=== PATIENT | male | born 2000 | race Caucasian/White ===

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

== ENCOUNTER 2019-02-03 16:25 | Emergency (ER) | payer MEDICAID, SELFPAY ==
[2019-02-03 16:26] VITALS: BP 162/82; PULSE 99; RESP 16; TEMP 36.6; O2SAT 99; BMI 28.5
--- NOTE | 2019-02-03 16:49 | ED.VIS.GEN ---
History of Present Illness Chief Complaint: Abd Pain Detail of Chief Complaint: Right-sided Informant: Patient Onset: Weeks Context: Sudden Onset Timing: Intermittent Quality: Sharp pain like when someone touches you after your struck by a baseball Location: Anomaly right upper quadrant and right lower quadrant Current Severity: Gone Maximum Severity: Severe Worsened by: Solids or liquids Relieved by: Not eating Associated Symptoms: 20 pound unintentional weight loss past month Narrative: Patient is a healthy 18-year-old with no medical problems who presents with right-sided intermittent abdominal pain after he attempts to eat or drink anything for the past several weeks to months. He reports a 20 pound weight loss. He denies family history cholelithiasis. He denies hematemesis, melena hematochezia. He denies dysuria, frequency, urgency or hematuria. Denies change in the color his urine. He denies change in color, caliber or consistency of his stool. He denies night sweats. Prior similar symptoms: No Recent Illness/Hospitalization: No Past Medical History - Allergies and Home Meds Allergies/Adverse Reactions: Allergies No Known Allergies Allergy (Verified 02/03/19 16:28) Primary Care Physician: Care Physician,No Primary [Primary Care Provider] - Prior records reviewed: Yes Past Medical History: None Surgical History: no surgical history Lives: Spouse/ Significant Other Smoking Status: Never smoker Alcohol: None Review of Systems General: Reports: Malaise, Weight loss. Denies: Chills, Fever, Subjective, Sweats Eyes: Denies: Visual changes - bilaterally, Blurred Vision - bilaterally, Diplopia ENT: Denies: Bilateral ear pain, Rhinorrhea, Sore throat Cardiovascular: Denies: Chest pain, Palpitations Respiratory: Denies: Dyspnea, Cough, Dyspnea on exertion Gastrointestinal: Reports: Abdominal pain, Nausea, Vomiting. Denies: Diarrhea, Constipation, Melena, Hematochezia Genitourinary: Denies: Dysuria, Hematuria, Frequency Musculoskeletal: Reports: Myalgias, Arthralgias, Neck pain. Denies: Back pain, Extremity Pain Skin: Denies: Rash, Wounds Neurological: Denies: Headache, Weakness, Numbness Psych: Denies: Depression Hematologic: Denies: Easy bruising, Easy bleeding Allergy: Denies: Uticaria Physical Exam Vital Signs/Narrative: Vital Signs Temp Pulse Resp BP Pulse Ox 02/03/19 16:26 98 F 99 16 162/82 H 99 Inital Vital Signs reviewed: Yes General: Well nourished, Well developed, No Acute Distress Head: Normocephalic, Atraumatic Eyes: Perrl, EOMI. Negative for: Pale conjunctiva, Scleral icterus ENT: No rhinorrhea, TM's clear, Dry mucous membranes. Negative for: Nasal congestion, Sinus tenderness Neck: Supple, Nontender, No lymphadenopathy, No JVD Cardiovascular: Regular rate, Regular rhythm, No murmurs, Normal S1, Normal S2 Respiratory: No distress, CTA bilaterally, Chest nontender. Negative for: Decreased Air Movement Abdomen: Soft, Nontender, Nondistended, Normal bowel sounds, No masses. Negative for: Hepatomegaly, Splenomegaly, Mass, Ventral hernia, Umbilical hernia Back: Nontender, Normal Inspection Extremities: Nontender, No edema Skin: Normal color, No rash. Negative for: Cyanosis, Jaundice, Pallor Neurological: Alert, Oriented x3, Cranial nerves II-XII grossly intact, Normal Strength, Normal Sensation Psychological: Normal affect, Normal Mood Diagnostic/Tx/Re-eval Laboratory Results 02/03/19 02/03/19 02/03/19 17:10 17:10 18:00 WBC 11.4 H RBC 5.56 Hgb 16.0 Hct 48.5 MCV 87.2 MCH 28.8 MCHC 33.0 RDW 12.7 RDW Differential 40.7 Plt Count 371 MPV 9.4 Immature Gran % (Auto) 0.900 Neut % (Auto) 59.4 Lymph % (Auto) 30.4 [place] % (Auto) 8.0 Eos % (Auto) 0.9 Baso % (Auto) 0.4 Absolute Neuts (auto) 6.8 Absolute Lymphs (auto) 3.46 Total Counted Not Reportable Sodium 138 Potassium 3.8 Chloride 104 Carbon Dioxide 28.0 Anion Gap 6 BUN 7 Creatinine 0.96 Estim Creat Clear Calc 131.82 Est GFR (MDRD) Af Amer 129 Est GFR (MDRD) Non-Af 107 BUN/Creatinine Ratio 7.3 L Glucose 83 Calcium 9.2 Total Bilirubin 0.70 AST 21 ALT 56 Alkaline Phosphatase 94 Total Protein 7.8 Albumin 4.3 Globulin 3.5 Albumin/Globulin Ratio 1.2 Lipase 148 Urine Color Yellow Urine Clarity Clear Urine pH 8.0 Ur Specific [place] 1.010 Urine Protein Negative Urine Glucose (UA) Normal Urine Ketones Negative Urine Occult Blood Negative Urine Nitrite Negative Urine Bilirubin Negative Urine Urobilinogen Normal Ur Leukocyte Esterase Negative - Medical Decision Making With history of 20 pound weight loss generalized weakness conference of metabolic panel was obtained to assess electrolytes, renal function and hepatic enzymes. CBC was obtained to assess white count, H&H and differential in the event that he has an atypical differential to may suggest leukemia. Since patient had no vomiting here and his blood work is unremarkable will discharge to home to follow-up with primary care physician. If he does not have one will assign one to him. ED Disposition - Plan for ED Patient: Diagnosis: Right-sided abdominal pain of unknown cause, Nausea and vomiting in adult patient Instructions: ED Abdominal Pain Unkn Cause Male, ED Nausea Vomiting Prescriptions: Ondansetron [Zofran Odt] 4 mg PO Q8H PRN PRN #10 tab PRN Reason: Nausea Referrals: Care Physician,No Primary [Primary Care Provider] - Additional Instructions: Your primary care doctor's name is on your insurance card supplied to you by [facility]. Recommend calling your doctor and following up in the next 5-7 days.
[2019-02-03] MEDS: 0.9% Normal Saline 1,000 ML 1000 ML IV (17:17)
[2019-02-03 17:32] LABS: Absolute Lymphocyte Count 3.46 X10^3/ul (0.83-4.51); Absolute Neutrophil Count 6.8 X10^3/uL (2.0-7.7); Basophil# 0.04 X10^3/uL; Basophil% 0.4 % (0-1); Eosinophils% 0.9 % (0-5); Hematocrit 48.5 % (40-54); Lymphocyte # 3.46 X10^3/ul (4.0); Lymphocyte % 30.4 % (19-41); Mean Corpuscular Hgb 28.8 pg (27.0-32.0); Mean Corpuscular Volume 87.2 fL (80-94); Mean Platelet Vol. 9.4 fl (6.2-12.0); Monocyte# 0.91 X10^3/uL; Neutrophil # 6.79 X10^3/uL (2.7-7.7); Neutrophil % 59.4 % (47-70); Platelet Count 371 K/mm3 (150-450); RBC Distribution Width CV 12.7 % (11.6-14.6); RBC Distribution Width SD 40.7 fl (35.1-43.9); Red Blood Count 5.56 M/mm3 (4.6-6.2); White Blood Count 11.4 K/mm3 (4.4-11.0)
[2019-02-03 17:33] LABS: POSITIVE COUNT NO; POSITIVE DIFFERENTIAL NO; POSITIVE MORPHOLOGY NO
[2019-02-03 17:43] LABS: ALB/GLOB Ratio 1.2 RATIO (0.9-2.4); AST(SGOT) 21 U/L (15-37); Alanine Aminotransfer ALT/SGPT 56 U/L (16-61); Albumin, Serum 4.3 g/dL (3.2-5.0); Alkaline Phosphatase 94 U/L (45-117); Anion Gap 6 (5-15); BUN 7 mg/dL (7-18); BUN/Creat Ratio 7.3 RATIO (10-20); Calcium,Total 9.2 mg/dL (8.5-10.1); Chloride 104 mmol/L (98-107); Creatinine, Serum 0.96 mg/dL (0.70-1.30); EST Glomerular Filtration Rate 107 mL/min (>60); Est Glom Filt Rate - Afr Amer 129 mL/min (>60); Estimated Creatinine Clearance 131.82 ml/min; Globulin 3.5 g/dL (2.2-4.2); Glucose 83 mg/dL (74-106); Lipase 148 U/L (73-393); Potassium 3.8 mmol/L (3.5-5.1); Protein, Total 7.8 g/dL (6.4-8.2); Sodium Level 138 mmol/L (136-145)
[2019-02-03 18:32] LABS: Color, Urine Yellow (Yellow); Glucose, Dipstick Normal (Normal); Ketone-Dipstick Negative (Negative); Leukocyte Esterase-Dipstick Negative /ul (Negative); Nitrite-Dipstick Negative (Negative); Occult Blood-Urine Negative /ul (Negative); Protein-Dipstick Negative (Negative); Urine Bilirubin Dipstick Negative (Negative); Urine Clarity Clear (Clear); Urine Urobilinogen Normal (Normal)
[2019-02-03 19:37] VITALS: BP 120/62; PULSE 81; RESP 16; O2SAT 98
== END 2019-02-03 19:37 | disposition home or self-care (01) ==
LOC: ED 17:00
PROVIDERS: Emergency Provider Emergency Medicine
DX: R10.11 Right upper quadrant pain (principal); R10.31 Right lower quadrant pain; R11.2 Nausea with vomiting, unspecified
CPT/HCPCS: 80053; 81002; 83690; 85025; 96360; 99283; J7030; A4216

== ENCOUNTER 2019-03-29 12:54 | Emergency (ER) | payer MEDICAID, SELFPAY ==
[2019-03-29 12:55] VITALS: BP 155/86; PULSE 77; RESP 18; TEMP 36.6; O2SAT 98; BMI 29.4
--- NOTE | 2019-03-29 13:08 | ED.VISSUMM ---
- ER Visit Summary Date of Service: 03/29/19 Chief Complaint: Back pain History of Present Illness: The patient is a 18 M who complains of left lower back pain. Started 20 minutes ago. He was laying down when this happened. He denies any specific injury. He has sharp pain in the left lumbar area that does not radiate. It is worse with movement. Nothing makes it better. He took nothing for it. Denies any bowel or bladder incontinence. No numbness or tingling to his legs. He has had back pain before but states is never been this bad. Physical Examination: Vitals are reviewed. Heart is regular rate and rhythm. Lungs are clear. Abdomen is soft. Back is tender in the left lumbar paraspinal area. He has no midline tenderness. No CVA tenderness. His neurologic exam is normal. Test Results: None performed Emergency Department Course and Treatment: The patient's pain is muscular. Since he has no bony tenderness I do not feel x-rays are necessary. I will give him Norflex and Toradol here. Naproxen and Flexeril for home. Will follow up with his PCP Treatment Plan: [] Disposition: Discharge Impression: Lumbar strain This note was generated with [employer] dictation software. It may contain incorrect words, spelling, and punctuation that were not noted in review of the chart prior to signing ED Disposition - Plan for ED Patient: Referrals: Care Physician,No Primary [Primary Care Provider] -
--- NOTE | 2019-03-29 13:09 | ED.DEP ---
ED Disposition - Plan for ED Patient: Disposition: Home or Assisted Living Instructions: ED Neck Back Pain General Prescriptions: Naproxen [Naprosyn] 500 mg PO BID PRN #20 tab Cyclobenzaprine [Flexeril] 10 mg PO TID PRN #20 tab PRN Reason: Muscle Spasm Referrals: Care Physician,No Primary [Primary Care Provider] -
[2019-03-29] MEDS: Orphenadrine 60 MG/2 ML Ampul IM (13:21)
[2019-03-29] MEDS: Ketorolac 60 MG/2 ML Vial IM (13:21)
== END 2019-03-29 13:41 | disposition home or self-care (01) ==
LOC: ED 13:18
PROVIDERS: Emergency Provider Emergency Medicine
DX: S39.012A Strain of muscle, fascia and tendon of lower back, initial encounter (principal); X58.XXXA Exposure to other specified factors, initial encounter; Y93.89 Activity, other specified; Y92.9 Unspecified place or not applicable; Z72.0 Tobacco use
CPT/HCPCS: 96372; 99281

== ENCOUNTER 2019-04-03 07:27 | Emergency (ER) | payer MEDICAID, SELFPAY ==
[2019-04-03 07:28] VITALS: BP 155/83; PULSE 82; RESP 16; TEMP 36.6; O2SAT 98; BMI 27.8
--- NOTE | 2019-04-03 07:36 | ED.VIS.UPPEX ---
History of Present Illness Chief Complaint: Upper Extremity Injury Informant: Patient Occurred: Today Mechanism/Context: Injury, Work Related Current Severity: Mild Maximum Severity: Moderate Worsened by: Movement and palpation Relieved by: Nothing Associated Symptoms: Negative for: Parasthesia, Weakness, Loss of Funtion Narrative: Patient presents with crush injury and localizes pain to the middle phalanx of his right index finger. He is right-hand dominant. Immunization within 5 to 10 years. He denies paresthesia, anesthesia motor weakness. He has no contraindication to NSAIDs. Prior similar symptoms: No Recent Illness/Hospitalization: No - Past Medical History (1) No significant past medical history Status: Acute Past Medical History - Allergies and Home Meds Allergies/Adverse Reactions: Allergies No Known Allergies Allergy (Verified 04/03/19 07:30) Primary Care Physician: Care Physician,No Primary [Primary Care Provider] - Prior records reviewed: No Past Medical History: None Surgical History: no surgical history Lives: Alone Smoking Status: Current every day smoker Alcohol: None Review of Systems Musculoskeletal: Reports: Extremity Pain - Right index finger. Denies: Myalgias, Arthralgias, Neck pain, Back pain, Swelling Neurological: Denies: Weakness, Parasthesia, Numbness Hematologic: Denies: Easy bruising, Easy bleeding Allergy: Denies: Uticaria, Swelling of the mouth Physical Exam Vital Signs/Narrative: Vital Signs Temp Pulse Resp BP Pulse Ox 04/03/19 07:28 97.9 F 82 16 155/83 H 98 Inital Vital Signs reviewed: Yes Right Wrist: Negative for: Abrasion, Contusion, Deformity, Edema, Hematoma, Limited ROM, - Right Hand: Negative for: Abrasion, Contusion, Deformity, Edema, Hematoma, Limited ROM, - Right Finger: Contusion, - - There is swelling and pain palpation of the middle phalanx. The extensor and decide tendon is intact. The flexor digitorum superficialis and flexor digitorum profundus are intact. There is no subungual hematoma noted. Sensation is normal. Capillary refill is normal.. Negative for: Abrasion, Deformity, Edema, Hematoma, Limited ROM General: Well nourished, Well developed Head: Normocephalic, Atraumatic Eyes: Perrl, EOMI. Negative for: Pale conjunctiva Cardiovascular: Regular rate, Regular rhythm Respiratory: No distress Neurological: Alert, Oriented x3, Cranial nerves II-XII grossly intact, Normal Strength, Normal Sensation Psychological: Normal affect, Normal Mood Diagnostic/Tx/Re-eval Chest X-Ray - ED: Read by ED Physician Three-view x-ray of the right index finger was obtained. On the AP view and oblique there is radiolucency without disruption of the cortex. Since patient is tender over this area and there is soft tissue swelling will treat as if there is a nondisplaced fracture and referred to [facility] for follow-up. - Medical Decision Making Since there is point tenderness and swelling will obtain x-ray to evaluate for fracture. Differential contusion versus fracture. Since there is concern for nondisplaced fracture the middle phalanx was placed in aluminum splint. He was referred to [facility]. ED Disposition - Plan for ED Patient: Disposition: Home or Assisted Living Diagnosis: Fracture of middle phalanx of right index finger Instructions: ED Fx Finger Closed Referrals: Care Physician,No Primary [Primary Care Provider] - [facility] [GROUP OF PHYSICIANS] - 2 Days Additional Instructions: Wear splint 14/06. May remove splint every 2 to 3 days to apply new tape. Follow-up with [facility]. There is an area of concern that may represent a nondisplaced fracture and reason you were placed in a splint.
--- NOTE | 2019-04-03 07:46 | RAD_ITS ---
STUDY: X-RAY - RIGHT HAND, ATTENTION SECOND FINGER REASON FOR EXAM: Male, 18 years old. Injury to the middle phalanx PIP TECHNIQUE: 3 view(s) of the finger were obtained. COMPARISON: None. FINDINGS: There is a subtle hairline fracture at the base of the middle phalanx of the right hand, second digit with subjacent soft tissue swelling. No evidence of involvement of the PIP joint. RAD/Finger(s) Min 2 Views IMPRESSION: As above Electronically Signed: Yusuf Wright DO at 8:29 EDT Tel , Service support ,
== END 2019-04-03 08:25 | disposition home or self-care (01) ==
LOC: ED 08:20
PROVIDERS: Emergency Provider Emergency Medicine
DX: S62.620A Displaced fracture of middle phalanx of right index finger, initial encounter for closed fracture (principal); X58.XXXA Exposure to other specified factors, initial encounter; Y93.9 Activity, unspecified; Y92.9 Unspecified place or not applicable; F17.200 Nicotine dependence, unspecified, uncomplicated
CPT/HCPCS: 73140; 99283

== ENCOUNTER 2020-06-26 20:38 | Emergency (ER) | payer SELFPAY ==
[2020-06-26 20:39] VITALS: BP 151/84; PULSE 128; RESP 16; TEMP 36.6; O2SAT 96; BMI 29.7
--- NOTE | 2020-06-26 21:04 | ED.VIS.GEN ---
History of Present Illness Chief Complaint: Ear Problem Detail of Chief Complaint: Right ear pain Informant: Patient Onset: Days Context: Gradual Onset Current Severity: Mild Maximum Severity: Moderate Narrative: Patient reports right ear pain for the past 3 days after returning from a camping trip. He does state he was doing a lot of swimming while he was camping. He denies other URI symptoms. No fever. - Past Medical History (1) Asthma Status: Chronic Past Medical History - Allergies and Home Meds Allergies/Adverse Reactions: Allergies No Known Allergies Allergy (Verified 04/03/19 07:30) Primary Care Physician: Care Physician,No Primary [Primary Care Provider] - Prior records reviewed: Yes Surgical History: no surgical history Smoking Status: Former smoker Review of Systems General: Denies: Chills, Fever Eyes: Denies: Visual changes - bilaterally ENT: Reports: Right ear pain. Denies: Rhinorrhea, Sore throat Cardiovascular: Denies: Chest pain Respiratory: Denies: Dyspnea, Cough Gastrointestinal: Denies: Abdominal pain, Nausea, Vomiting, Diarrhea Musculoskeletal: Denies: Extremity Pain Skin: Denies: Rash Neurological: Denies: Headache Hematologic: Denies: Easy bruising, Easy bleeding Allergy: Denies: Uticaria Physical Exam Vital Signs/Narrative: Vital Signs Temp Pulse Resp BP Pulse Ox 06/26/20 20:39 97.8 F 128 H 16 151/84 H 96 Inital Vital Signs reviewed: Yes General: Well nourished, Well developed Head: Normocephalic Eyes: Perrl, EOMI ENT: Moist mucous membranes, - - TMs are clear bilaterally. The right external ear canal is edematous with mild discharge. Neck: Supple Cardiovascular: Regular rate, Regular rhythm Respiratory: No distress, CTA bilaterally Abdomen: Soft, Nontender Skin: Normal color Neurological: Alert, Oriented x3 Psychological: Normal affect Diagnostic/Tx/Re-eval - Medical Decision Making Patient has evidence of otitis externa. He is given neomycin/polymyxin eardrops. He is referred to local PCP for follow-up. ED Disposition - Plan for ED Patient: Disposition: Home or Assisted Living Diagnosis: Otitis externa Instructions: ED Otitis Externa Referrals: Westley Stanton MD [NON-STAFF] - As Needed Additional Instructions: Ear drops - 4 drops to affected ear 4x/day for 7 days.
[2020-06-26] MEDS: Neomycin/Polymyxin/Dexameth 5ML OPTH.BTL 4 DRP OTIC (21:26)
== END 2020-06-26 21:29 | disposition home or self-care (01) ==
LOC: ED 21:09
PROVIDERS: Emergency Provider Emergency Medicine
DX: H60.91 Unspecified otitis externa, right ear (principal); Z87.891 Personal history of nicotine dependence
CPT/HCPCS: 99281; 99282

== ENCOUNTER 2020-10-19 21:41 | Observation (INO) | payer SELFPAY ==
[2020-10-19 21:42] VITALS: BP 158/114; PULSE 107; RESP 16; TEMP 35.8; O2SAT 98; BMI 29.0
--- NOTE | 2020-10-19 22:02 | ED.VIS.GEN ---
History of Present Illness Chief Complaint: Abd Pain Informant: Patient Onset: Today Context: Gradual Onset Current Severity: Moderate Maximum Severity: Moderate Narrative: Patient presents with right lower quad abdominal pain that started around 3 PM this afternoon. He reports some nausea with occasional blood streaks in his emesis. He denies diarrhea or urinary symptoms. He denies fever. He denies prior abdominal surgery. He does report a history of Crohn's disease but states this does not feel like any prior Crohn's flares. He does not take any maintenance medication for his Crohn's and does not follow with a GI doctor. - Past Medical History (1) Crohn's disease Status: Chronic (2) Asthma Status: Chronic Past Medical History - Allergies and Home Meds Allergies/Adverse Reactions: Allergies No Known Allergies Allergy (Verified 10/19/20 21:44) Primary Care Physician: Care Physician,No Primary [Primary Care Provider] - Surgical History: no surgical history Smoking Status: Former smoker Review of Systems General: Denies: Chills, Fever Eyes: Denies: Visual changes - bilaterally ENT: Denies: Bilateral ear pain Cardiovascular: Denies: Chest pain Respiratory: Denies: Dyspnea, Cough Gastrointestinal: Reports: Abdominal pain, Nausea, Vomiting. Denies: Diarrhea Genitourinary: Denies: Dysuria Musculoskeletal: Denies: Swelling, Extremity Pain Skin: Denies: Rash Neurological: Denies: Headache Hematologic: Denies: Easy bruising, Easy bleeding Allergy: Denies: Uticaria Physical Exam Vital Signs/Narrative: Vital Signs Temp Pulse Resp BP Pulse Ox 10/19/20 21:42 96.5 F L 107 H 16 158/114 H 98 Inital Vital Signs reviewed: Yes General: Well nourished, Well developed Head: Normocephalic ENT: Moist mucous membranes Neck: Supple Cardiovascular: Regular rate, Regular rhythm Respiratory: No distress, CTA bilaterally Abdomen: Soft, Tender - Mild right lower quadrant tenderness to palpation., Hypoactive bowel sounds. Negative for: Guarding, Rebound tenderness Extremities: Nontender Skin: Normal color Neurological: Alert, Oriented x3 Psychological: Normal affect Diagnostic/Tx/Re-eval Impressions Abdomen/Pelvis CT 10/20/20 22:01 IMPRESSION: Findings are consistent with acute appendicitis. Bilateral benign appearing renal cysts. Electronically Signed: Shilpa Hammond MD at 2:13 EST Tel , Service support , 10/20/20 22:01 Abdomen/Pelvis WITH Contrast [CT] Stat Laboratory Results 10/19/20 10/19/20 10/20/20 22:25 22:25 02:00 WBC 23.0 H RBC 6.01 Hgb 17.1 H Hct 52.0 MCV 86.5 MCH 28.5 MCHC 32.9 RDW Std Deviation 38.9 RDW Coeff of [place] 12.3 Plt Count 412 MPV 9.0 Immature Gran % (Auto) 0.700 Neut % (Auto) 85.6 H Lymph % (Auto) 9.0 [place] % (Auto) 4.4 Eos % (Auto) 0.0 Baso % (Auto) 0.3 Absolute Neuts (auto) 19.7 H Absolute Lymphs (auto) 2.07 Nucleated RBC % 0 Sodium 139 Potassium 3.7 Chloride 105 Carbon Dioxide 27.0 Anion Gap 7 BUN 13 Creatinine 0.94 Estim Creat Clear Calc 132.40 Est GFR (MDRD) Af Amer 130 Est GFR (MDRD) Non-Af 107 BUN/Creatinine Ratio 13.8 Glucose 123 H Calcium 9.5 Urine Color Yellow Urine Clarity Clear Urine pH 7.0 Ur Specific [place] 1.010 Urine Protein Negative Urine Glucose (UA) Normal Urine Ketones 15 H Urine Occult Blood Negative Urine Nitrite Negative Urine Bilirubin Negative Urine Urobilinogen Normal Ur Leukocyte Esterase Negative - Medical Decision Making Patient was given morphine and Zofran followed by dose of Dilaudid and Phenergan for pain and nausea control. White count is significantly elevated at 23 with a left shift. CT scan reveals evidence of acute appendicitis. Test results are discussed with the patient at bedside. He is given a dose of Zosyn and I will speak with hospitalist regarding admission for appendectomy. ED Disposition - Plan for ED Patient: Disposition: Acute Care [facility] Diagnosis: Acute appendicitis Referrals: Care Physician,No Primary [Primary Care Provider] -
[2020-10-19] MEDS: 0.9% Normal Saline 1,000 ML 150 ML IV (22:24)
[2020-10-19] MEDS: Ondansetron 4 MG/2 ML Vial IV (22:25)
[2020-10-19] MEDS: Morphine 4 MG/ML Syringe IV (22:25)
[2020-10-19 22:39] LABS: Absolute Lymphocyte Count 2.07 X10^3/uL (0.83-4.51); Absolute Neutrophil Count 19.7 X10^3/uL (2.0-7.7); Basophil# 0.08 X10^3/uL; Basophil% 0.3 % (0-1); Eosinophil# 0.01 X10^3/uL; Hemoglobin 17.1 g/dL (13.0-16.5); Lymphocyte # 2.07 X10^3/ul (4.0); Mean Corp Hgb Conc 32.9 g/dL (32-36); Mean Corpuscular Hgb 28.5 pg (27.0-32.0); Mean Corpuscular Volume 86.5 fL (80-94); Monocyte# 1.01 X10^3/uL; Monocyte% 4.4 % (0-10); NRBC Flagged by Analyzer 0 % (0-5); Neutrophil # 19.69 X10^3/uL (2.7-7.7); Neutrophil % 85.6 % (47-70); Platelet Count 412 K/mm3 (150-450); RBC Distribution Width CV 12.3 % (11.6-14.6); RBC Distribution Width SD 38.9 fl (35.1-43.9); Red Blood Count 6.01 M/mm3 (4.6-6.2)
[2020-10-19 22:51] LABS: Anion Gap 7 (5-15); BUN 13 mg/dL (7-18); BUN/Creat Ratio 13.8 RATIO (10-20); Calcium,Total 9.5 mg/dL (8.5-10.1); Chloride 105 mmol/L (98-107); Creatinine, Serum 0.94 mg/dL (0.70-1.30); EST Glomerular Filtration Rate 107 mL/min (>60); Est Glom Filt Rate - Afr Amer 130 mL/min (>60); Glucose 123 mg/dL (74-106); Potassium 3.7 mmol/L (3.5-5.1); Sodium Level 139 mmol/L (136-145)
[2020-10-19] MEDS: HYDROmorphone 0.5 MG/0.5 ML SYRINGE IV (23:18)
[2020-10-19] MEDS: proMETHazine 25 MG/ML Syringe 12.5 MG IV (23:18)
[2020-10-19 23:20] VITALS: BP 134/76; PULSE 63; RESP 16; O2SAT 96
[2020-10-20] VITALS (11 sets, daily range): BP systolic 132–149; BP diastolic 63–87; PULSE 65–112; RESP 16–18; TEMP 36.7–37.2; O2SAT 95–100; BMI 28.9
[2020-10-20 02:13] LABS: Color, Urine Yellow (Yellow); Glucose, Dipstick Normal (Normal); Ketone-Dipstick 15 mg/dl (Negative); Leukocyte Esterase-Dipstick Negative /ul (Negative); Mucous, Urine 0 SEEN /hpf (<or=2+); Nitrite-Dipstick Negative (Negative); Occult Blood-Urine Negative /ul (Negative); Protein-Dipstick Negative (Negative); Red Blood Cells-Urine 0 SEEN /hpf (0-5); Squamous Epithelial Cells - UA 0 SEEN /hpf (0-5); Urine Bilirubin Dipstick Negative (Negative); Urine Clarity Clear (Clear); Urine Urobilinogen Normal (Normal)
[2020-10-20 02:21] LABS: Bacteria 4+ /hpf (None Seen); White Blood Cells 0-5 SEEN /hpf (0-5)
[2020-10-20] MEDS: 0.9% Normal Saline 1,000 ML 150 ML IV (04:31)
--- NOTE | 2020-10-20 06:35 | PCM.HP.STD ---
History of Present Illness Date of Admission: 10/20/20 The patient is a 20 year old M presented to the ER due to abdominal pain starting at 3 PM yesterday states the pain coming and was at 7/10 currently it is improved, positive nausea. CT abdomen pelvis was done which did show acute appendicitis with appendicoliths. Patient's white blood cell count was 23 on admit patient did get Zosyn IV in the ER. Patient states he has a history of Crohn's disease diagnosed a couple years ago but he has never had colonoscopy or seen GI. Past Medical History Past Medical History (Chronic Problems): Chronic Problems Asthma (Chronic) Crohn's disease (Chronic) Allergies No Known Allergies Allergy (Verified 10/19/20 21:44) Home Medications: Ambulatory Orders Medication Instructions Recorded NK 04/03/19 Surgical History: no surgical history Psychiatric History: No pertinent psych hx Smoking Status: Former smoker - *Family History Maternal History Items: No pertinent history Review of Systems Constitutional: Reports: Anorexia Eyes: Denies: Blurred vision HEENT: Denies: Difficulty Swallowing Gastrointestinal: Reports: Abdominal Pain VTE Information - Inpt Only VTE Present on Admission: Yes VTE Mechan Device Prophylaxis: SCD's Patient Problems: Active and Suspected Problems Acute appendicitis (Acute) - Physical Exam Vitals/I&O's: Vital Signs Temp Pulse Resp BP Pulse Ox 99.0 F 78 18 132/63 H 99 10/20/20 06:10 10/20/20 06:10 10/20/20 06:10 10/20/20 06:10 10/20/20 06:10 Oxygen Delivery Method Room Air Weight: 207 lb 3.752 oz Body Mass Index (BMI) 28.9 Intake and Output for Last 24 Hours 10/18/20 10/19/20 10/20/20 23:59 23:59 23:59 Intake Total 110 / 110 967.5 / 967.5 Balance 110 / 110 967.5 / 967.5 General: Alert, Oriented x3, Cooperative, No apparent distress HEENT: Atraumatic Lungs: Normal air movement Cardiovascular: Regular rate Abdomen: Soft, Non-Distended, Tender - Right lower quadrant no peritoneal signs Extremities: No clubbing, No cyanosis, No edema Neurological: Cranial nerves II-XII grossly intact Psych/Mental Status: Normal Affect Microbiology Past 72 Hours 10/20/20 02:45 Mucosa - Nose SARS-CoV-2 Antigen (Rapid) - Final Laboratory Results 10/19/20 22:25: WBC 23.0 H, RBC 6.01, Hgb 17.1 H, Hct 52.0, MCV 86.5, MCH 28.5, MCHC 32.9, RDW Std Deviation 38.9, RDW Coeff of Shyla 12.3, Plt Count 412, MPV 9.0, Immature Gran % (Auto) 0.700, Neut % (Auto) 85.6 H, Lymph % (Auto) 9.0 L, [place] % (Auto) 4.4, Eos % (Auto) 0.0, Baso % (Auto) 0.3, Absolute Neuts (auto) 19.7 H, Absolute Lymphs (auto) 2.07, Nucleated RBC % 0 10/19/20 22:25: Sodium 139, Potassium 3.7, Chloride 105, Carbon Dioxide 27.0, Anion Gap 7, BUN 13, Creatinine 0.94, Estim Creat Clear Calc 132.40, Est GFR (MDRD) Af Amer 130, Est GFR (MDRD) Non-Af 107, BUN/Creatinine Ratio 13.8, Glucose 123 H, Calcium 9.5 10/20/20 02:00: Urine Color Yellow, Urine Clarity Clear, Urine pH 7.0, Ur Specific [place] 1.010, Urine Protein Negative, Urine Glucose (UA) Normal, Urine Ketones 15 H, Urine Occult Blood Negative, Urine Nitrite Negative, Urine Bilirubin Negative, Urine Urobilinogen Normal, Ur Leukocyte Esterase Negative, Urine RBC 0 SEEN, Urine WBC 0-5 SEEN, Ur Squamous Epith Cells 0 SEEN, Urine Bacteria 4+, Urine Mucus 0 SEEN Current Medications Sodium Chloride () 1,000 mls @ 150 mls/hr IV .[id number] JAYA Last Admin: 10/20/20 04:31 Dose: 150 mls/hr Documented by: Piperacillin Sod/Tazobactam (Sod 3.375 gm/ Sodium Chloride) 50 mls @ 12.5 mls/hr IV Q8 JAYA Sodium Chloride () 250 mls @ 15 mls/hr IV .[id number] PRN PRN Reason: Saline Flush Sodium Chloride () 250 mls @ 15 mls/hr IV .[id number] PRN PRN Reason: Additional IVPB Infusion Morphine Sulfate (Morphine 2 Mg/Ml Syringe) 2 - 4 mg IV Q2H PRN PRN PRN Reason: Pain Score 1-10 Morphine Sulfate (Morphine 4 Mg/Ml Syringe) 2 - 4 mg IV Q2H PRN PRN PRN Reason: Pain Score 1-10 Ondansetron HCl (Ondansetron 4 Mg/2 Ml Vial) 4 mg IV Q8H PRN PRN PRN Reason: NAUSEA Sodium Chloride (0.9% Saline Lock 10 Ml Syringe) 10 - 40 ml IV UD PRN PRN Reason: SALINE FLUSH Assessment/Plan All Active Problems No significant past medical history (Acute) Acute appendicitis (Acute) 20-year-old male with acute appendicitis 1. Discussed procedure laparoscopic appendectomy, possible open, possible bowel resection along with the risk but not limited to bleeding, infection/abscess, injury to another organ (small bowel, colon, etc.), adhesion, hernia at incision sites, and anesthesia. Patient no further questions this time. Ninoska Cherry M.D. Pager: [phone] [facility] [address] [place] [address], [address] [place] [address] Office: [phone] Procedure Criteria Procedure Type: Elective COVID Risk Discussion: The surgeon/proceduralist and patient have discussed in detail the risk of exposure to and/or potential harm posed by the COVID-19 virus with having a surgery/procedure at this time versus the risk of delaying the surgery/procedure. It is not possible to know either the risk of delaying the surgery or procedure or chance of getting an infection with perfect accuracy, but a joint decision was made between the patient and the surgeon/proceduralist to proceed at this time with the scheduled surgery/procedure as indicated on the consent form.
--- NOTE | 2020-10-20 07:00 | APP_PTH ---
PATIENT: CHANO CARTY LOC: MS3 U#:[id number] AGE/SX: 20/M ROOM: MS316 RE10/20/[address]: Dr. Ninoska Cherry MD : 2000 BED: 1 DIS: 10/20/2020 SPEC #: [id number] RECD: 10/21/20 07:45 STATUS: SOUSangeeta RENohelia #: [id number] ANDREW: 10/20/20 07:[address]: Ninoska Cherry DEPT: SURGICAL PATHOLOGY RECD BY: Sandra Wood ENTERED: 10/21/20 08:40 SP TYPE: APPENDIX OTHR DR: No Primary Care Phys Tissues: Appendix, NOS Procedures: Surgery Specimen Level III HEADER OPERATION: Laparoscopic appendectomy PRE-OP DIAGNOSIS: Acute appendicitis TISSUE SUBMITTED: Appendix MICROSCOPIC DIAGNOSIS Appendix, appendectomy: Acute appendicitis. Acute serositis. AM:lynsey 10/22/20 MICROSCOPIC DESCRIPTION Slides are reviewed. GROSS DESCRIPTION Received in fixative is one container labeled with the patient's name and designated appendix. The specimen consists of a C-shaped appendix measuring 11 cm in length and up to 1 cm in diameter. The serosa is congested. No obvious perforation is identified. No fecalith is identified. Biomedical Scientist sections are submitted in one cassette. / SJ:rg 10/21/20 TC:2 CPT: 28062
[2020-10-20] MEDS: Lactated Ringers 1,000 ML 75 ML IV (07:01)
[2020-10-20] MEDS: Bupiv/Epi 0.5% Mpf 30 ML Vial (07:52)
--- NOTE | 2020-10-20 08:00 | OP.PCM_ITS ---
Report of Operation Date of Procedure: 10/20/20 Pre-Operative Diagnosis: Acute appendicitis Post-Operative Diagnosis: Acute appendicitis, no evidence of Crohn's disease Surgery/Procedure Performed:: Laparoscopic appendectomy Anesthesiologist: Herlinda Moreau Special Medications: Zosyn 3.375 g IV given for acute appendicitis on the floor acute 8 Specimen's removed: Appendix Estimated Blood Loss (mL): 5 cc Fluids Replaced: 1000 cc Description of Procedure: Indications: 20-year-old male presented to the ER with new right lower quadrant pain starting yesterday afternoon. On workup he was found to have acute appendicitis on CT and a leukocytosis of 23. Patient was started on antibiotics in the ER for acute appendicitis-Zosyn IV in the ER and on the floor. Description of the procedure: The patient was placed on operating table in supine position. General anesthesia was induced. A timeout was completed verifying correct patient, procedure, position and special equipment prior to beginning procedure. Abdomen was prepped and draped in usual sterile fashion. Incision was made in the natural skin line above the umbilicus with a 15 blade scalpel. The fascia was elevated and incised. Entry into the peritoneum was confirmed visually and no bowel was noted in the vicinity of the incision. The Spear trocar was placed under direct vision. Abdomen insufflated with a pressure of 12-15 mmHg. Patient tolerated insertion well. The scope was inserted and the abdomen inspected. No injuries from initial t rocar placement were noted. Minimal amount of fluid was seen in the right lower quadrant. An direct visualization 2 -5 mm trocars were placed one above the symphysis pubis and below the hairline and one in the left lower quadrant lateral to the rectus muscle. Care is taken to avoid injury to the bladder and inferior epigastric vessels. The table was placed in Trendelenburg position with the right side elevated. The appendix was grasped with atraumatic grasper and elevated. It was noted to be inflamed. A window was developed in the mesoappendix at the point between the base of the appendix and the cecum. An endoscopic 45 mm linear cutting stapler blue load was then used to divide and staple the base of the appendix. It was reloaded with a vascular load and the mesoappendix similarly divided. The appendix was withdrawn into the Spear trocar after being placed endoscopically retrieval bag. Appendix was sent to pathology. The appendiceal stump was then irrigated and hemostasis was assured. Fluid was suctioned no other pathology was identified. Secondary trochars were removed under direct visualization. No bleeding was noted trocar sites. The laparoscope withdrawn and the umbilical trocar removed. The abdomen was allowed to collapse. Local anesthesia of 30 mL of 0.5% Marcaine was used at the incision sites. The umbilical trocar site was closed with the [id number] 0 Vicryl suture. The skin was closed up to clear sutures of 4-0 Monocryl and Steri-Strips. The patient was extubated. The patient tolerated the procedure well and was taken to the postanesthesia care unit in satisfactory condition. - Complications None
[2020-10-20] MEDS: oxyCODONE 5 MG Tablet PO (09:31)
--- NOTE | 2020-10-20 12:18 | DCINST_ITS ---
Discharge Diet: Light diet - advance as tolerated Discharge Activity: May not drive while taking narcotic pain medications. May shower in (days): 1 Lifting Restrictions: No lifting greater than 20 pounds x 2 weeks, no strenuous exercise for 5 wk Call your doctor if your incision/area has: Continuous Slow Oozing, Sudden Increased Bleeding, Increased Pain/ Swelling, Increased Redness, Foul Smelling Discharge, Swelling at the incision site Call your doctor if you observe: Fever of 101 or Higher Remove Dressing in (days):: 1 - Leave Steri-Strips on for 7 to 10 days for neuropathy 10 days okay to remove, okay to remove op sites tomorrow Additional Instructions: Okay to take ibuprofen 400-600 mg PO q6hr PRN along with the Percocet. Avoid Tylenol since there is already Tylenol in the Percocet. Take all pain meds with food. Percocet can cause constipation recommend taking daily stool softener (i.e. Colace/docusate) while taking the pain meds. Recommend starting some MiraLAX in 1 to 2 days if no bowel movement. If still no bowel movement the following day recommend taking magnesium citrate half the bottle and waiting 4-6 hours if still no results take the other half the bottle. Medications to take at Discharge Oxycodone HCl/Acetaminophen [Percocet 5/325] 1 - 2 tablet PO Q6H PRN PRN 4 Days #20 tablet 10/20/20 Allergies/Adverse Reactions: Allergies No Known Allergies Allergy (Verified 10/19/20 21:44) The following prescriptions were given: Oxycodone HCl/Acetaminophen [Percocet 5/325] 1 - 2 tablet PO Q6H PRN PRN 4 Days #20 tablet PRN Reason: Pain Transmission Status: Sent to [facility] Primary Care Physician: Care Physician,No Primary [Primary Care Provider] - Test Results: Test results from this visit will be discussed in further detail at your follow- up appointment, if applicable. Please Follow Up With: Ninoska Cherry MD - At 5 PM and on the weekends call [phone] with any concerns When: Call the office for a follow-up appointment in 2 weeks may be phone visit Proposed Discharge Date: 10/20/20
--- NOTE | 2020-10-20 22:01 | CT_ITS ---
We are attempting to reach an attending provider to discuss findings. An addendum with communication details will be sent when the communication is complete. STUDY: CT ABDOMEN AND PELVIS WITH CONTRAST REASON FOR EXAM: Male, 20 years old. RLQ Pain, elevated WBC,DRANK HALF OF THE ORAL CONTRAST AND THREW UP -- HX:ASTHMA RADIATION DOSAGE (If Supplied By Facility): CTDIvol = ( 18.30 ) mGy, DLP = ( 1158.23 ) mGycm TECHNIQUE: Transaxial images were obtained from the dome of the diaphragm to the symphysis pubis without oral contrast. Oral and amp; IV Gastrografin and amp; 100mL Isovue-370 was administered. Sagittal and coronal images were reconstructed. Individualized dose optimization techniques were used for this CT. COMPARISON: June 02, 2017 CT abdomen and pelvis, CT scan of the abdomen and pelvis January 27, 2011 FINDINGS: The visualized lung bases are unremarkable. The visualized portions of the heart are within normal limits. Normal liver. Normal gallbladder and extrahepatic biliary system. Normal spleen. Normal pancreas. Normal bilateral adrenal glands. There is a well-circumscribed cyst right kidney measuring 6.9 mm new since prior study January 30, 2011. Not visualized on prior study without contrast. Is a benign-appearing left renal cyst is present partially visualized on prior study 2010. It now measures 4.8 mm. There is contrast in the stomach. Normal small intestine. There is a decompressed appearance of most of the colon. The appendix is distended the wall is thickened enhancing and there is pericholecystic fluid as well as multiple punctate appendicoliths. Normal abdominal aorta. Normal inferior vena cava. There are reactive-appearing right lower quadrant right mesenteric lymph nodes.. Normal urinary bladder. Normal visualized prostate gland. There is a small umbilical hernia containing fat. There mild degenerative changes of the visualized lumbar spine. At the level of L4-L5 there is a minimal broad disc bulge. At L5-S1 there is spondylosis. CT/Abdomen/Pelvis WITH Contrast IMPRESSION: Findings are consistent with acute appendicitis. Bilateral benign appearing renal cysts. Electronically Signed: Shilpa Hammond MD at 2:13 EST Tel , Service support ,
== END 2020-10-20 13:30 | disposition home or self-care (01) ==
LOC: ED 10-20 02:21 → MS3 10-20 02:55
PROVIDERS: Admitting Provider Surgery; Emergency Provider Emergency Medicine; Visit Provider Surgery
PROC: 0DTJ4ZZ Resection of Appendix, Percutaneous Endoscopic Approach (ICD-10-PCS; CPT 44970; principal; 2020-10-20 07:00)
DX: R10.9 Unspecified abdominal pain (principal); K35.80 Unspecified acute appendicitis; K50.90 Crohn's disease, unspecified, without complications; J45.909 Unspecified asthma, uncomplicated; Z87.891 Personal history of nicotine dependence
CPT/HCPCS: 44970; 74177; 80048; 81001; 85025; 87426; 88304; 96361; 96365; 96367; 96375; 99218; 99285; J7030; J7120; Q9967; A4216; C1760; G0378; J2405

== ENCOUNTER 2021-06-03 14:34 | Emergency (ER) | payer MEDICAID, SELFPAY ==
[2020-10-20 06:10] VITALS: BMI 28.9
[2021-06-03 14:34] VITALS: BP 130/81; PULSE 110; RESP 18; TEMP 36.1; O2SAT 97; BMI 29.8
[2021-06-03 16:22] LABS: Absolute Lymphocyte Count 1.12 X10^3/uL (0.83-4.51); Absolute Neutrophil Count 15.9 X10^3/uL (2.0-7.7); Basophil# 0.08 X10^3/uL; Basophil% 0.4 % (0-1); Eosinophil# 0.01 X10^3/uL; Eosinophils% 0.1 % (0-5); Hematocrit 48.8 % (40-54); Hemoglobin 16.5 g/dL (13.0-16.5); Lymphocyte # 1.12 X10^3/ul (0.83-4.51); Lymphocyte % 6.2 % (19-41); Mean Corp Hgb Conc 33.8 g/dL (32-36); Mean Corpuscular Hgb 28.5 pg (27.0-32.0); Mean Corpuscular Volume 84.4 fL (80-94); Monocyte# 0.89 X10^3/uL; Monocyte% 4.9 % (0-10); NRBC Flagged by Analyzer 0 % (0-5); Neutrophil # 15.91 X10^3/uL (2.7-7.7); Neutrophil % 87.6 % (47-70); Platelet Count 390 K/mm3 (150-450); RBC Distribution Width CV 12.1 % (11.6-14.6); Red Blood Count 5.78 M/mm3 (4.6-6.2); White Blood Count 18.2 K/mm3 (4.4-11.0)
--- NOTE | 2021-06-03 16:25 | CT_ITS ---
EXAM: CT ABDOMEN AND PELVIS WITH INTRAVENOUS CONTRAST : 2000 CLINICAL INDICATION: Left flank pain, hx of chrons TECHNIQUE: Helically acquired images were obtained of the abdomen and pelvis with intravenous contrast. This CT exam was performed using one or more of the following dose reduction techniques: automated exposure control, adjustment of the mA and/or kV according to patient size, and/or use of iterative reconstruction technique. This report was created using [employer] report generation technology. CONTRAST: IV 100mL Isovue-300 COMPARISON: 10/20/2020 FINDINGS: LOWER THORAX: Unremarkable. Lung bases are clear. No cardiomegaly. No significant pericardial effusion. ABDOMEN: LIVER: Unremarkable. Homogeneous. No focal mass. GALLBLADDER AND BILE DUCTS: Unremarkable. No calcified gallstones. No gallbladder distention or wall edema. No intra- or extrahepatic biliary ductal dilation. PANCREAS: Unremarkable. No focal cystic or solid mass. SPLEEN: Unremarkable. Normal size without focal cystic or solid mass. ADRENALS: Unremarkable. No nodules. KIDNEYS AND URETERS: There is left-sided hydronephrosis and hydroureter. There is a 9 mm stone in the proximal left ureter. Normal renal size and position. STOMACH AND BOWEL: Unremarkable. No stomach or bowel distention. No focal inflammatory change. PELVIS: APPENDIX: No evidence of acute appendicitis. BLADDER: Unremarkable. REPRODUCTIVE: Unremarkable as visualized. No mass. ABDOMEN and PELVIS: INTRAPERITONEAL SPACE: Unremarkable. No ascites or other fluid collection. No free air. BONES/JOINTS: Unremarkable. No suspicious lytic or blastic abnormality. SOFT TISSUES: Unremarkable. No discrete abdominal or pelvic wall hernia. VASCULATURE: Unremarkable. Abdominal aorta is non-dilated. LYMPH NODES: Unremarkable. No enlarged lymph nodes. CT/Abdomen/Pelvis W IV Cont ONLY IMPRESSION: High-grade obstruction of the left collecting system due to a 9 mm stone in the proximal ureter. There is severe left-sided hydronephrosis. There is a nonobstructing calyceal stone also on the left kidney. Individualized dose optimization techniques were used for this CT. at 1720 Reported and signed by: Edilson Suarez MD Electronically Signed: Edilson Suarez MD at 17:19 EDT Tel , Service support ,
[2021-06-03 16:36] LABS: Anion Gap 6 (5-15); BUN 10 mg/dL (7-18); BUN/Creat Ratio 8.2 RATIO (10-20); Calcium,Total 9.7 mg/dL (8.5-10.1); Chloride 107 mmol/L (98-107); Creatinine, Serum 1.22 mg/dL (0.70-1.30); EST Glomerular Filtration Rate 79 mL/min (>60); Est Glom Filt Rate - Afr Amer 96 mL/min (>60); Estimated Creatinine Clearance 102.01 ml/min; Glucose 117 mg/dL (74-106); Potassium 3.6 mmol/L (3.5-5.1); Sodium Level 138 mmol/L (136-145)
[2021-06-03 16:37] VITALS: RESP 14
--- NOTE | 2021-06-03 16:39 | EDS_ITS ---
HPI History of Present Illness Chief Complaint: Flank Pain Informant: patient Narrative Narrative: Patient is a 20-year-old male with a past medical history of asthma, Crohn's disease who presents to the [facility] for left-sided abdominal wall pain. Is been present for the past 3 days. He has been taking Advil for this which has not given him significant relief. He currently rates the pain as a 7 out of 10. He has been having diarrhea as well as nausea and vomiting with this. He has had chills but no fevers. He does have a history of appendectomy. No other abdominal surgeries. He denies any urinary symptoms. He does have a distant history of kidney stone but does not think this is similar. Certain movements seem to make the pain worse. He did put ice pack on which very temporarily helped. He denies any chest pain, shortness of breath. He denies any bright red blood or melena in the stool. [facility] Medical History (Updated 06/03/21 @ 18:[address] Aj Osuna DO) Asthma Crohn's disease Home Medications NK 06/03/21 [History Last Taken Unknown] Allergy/AdvReac Type Severity Reaction Status Date / Time No Known Allergies Allergy Verified 06/03/21 14:38 Social History Smoking Status: Former smoker ROS ROS ED Constitutional Constitutional ED: Reports chills; Denies fever(s) Eyes Eyes: Denies change in vision ENT ENT ED: Denies epistaxis or rhinorrhea Cardiovascular Cardiovascular: Denies chest pain or palpitations Respiratory/Chest Respiratory/Chest: Denies cough, dyspnea or dyspnea on exertion Gastrointestinal Gastrointestinal: Reports abdominal pain, diarrhea, nausea, vomiting and other; Denies constipation or melena Genitourinary Genitourinary ED: Denies dysuria, hematuria or urinary frequency Musculoskeletal Musculoskeletal: Denies neck pain Integumentary Denies rash Neurologic Neurologic: Denies dizziness, headache(s) or weakness EXAM Physical Exam Const Vital Signs: 06/03/21 14:34 06/03/21 16:37 06/03/21 18:07 Temperature 97 F L 98.9 F Temperature Source Temporal Temporal Pulse Rate 110 H 84 Respiratory Rate 18 14 14 Blood Pressure 130/81 H 175/72 H Blood Pressure Mean 97 106 Pulse Ox 97 95 Oxygen Delivery Method Room Air Room Air 06/03/21 18:18 Temperature Temperature Source Pulse Rate 67 Respiratory Rate 14 Blood Pressure 175/72 H Blood Pressure Mean 106 Pulse Ox 95 Oxygen Delivery Method Positive well nourished and well developed General Appearance ED: well developed and NAD HEENT Reports normocephalic, head/scalp atraumatic and moist mucous membranes Eyes PERRL and EOMs intact bilaterally Neck supple Chest Wall inspection of chest normal Resp normal respiratory effort and clear to auscultation bilaterally Auscultation: Negative for rales, rhonchi or wheezes Cardio regular rate, regular rhythm and no murmurs GI normal to inspection, nondistended, normoactive bowel sounds GI Narrative: Tenderness in left lateral abdominal wall that extends to the low back and lower left quadrant. Palpation: soft; Negative for guarding or rebound tenderness present Extremity normal to inspection General Extremety ED: Negative for edema or tenderness General Extremity: Negative for edema Neuro no sensory deficits noted Sensorium / Orientation: alert Motor Exam: strength 5/5 throughout Psych mental status grossly normal Skin no rashes or lesions noted MDM MDM MDM Narrative Medical decision making narrative: Patient presents to the ED for abdominal pain nausea/vomiting/diarrhea. On arrival to the ED he is mildly tachycardic but otherwise normal vital signs. Afebrile. Patient in no acute distress. He does have tenderness but no rebound or guarding on examination. Given his history of kidney stones as well as Crohn's will check CT scan of the abdomen/pelvis. Basic lab work obtained. Patient given a dose of morphine for symptomatic treat ment. Patient's lab work did come back with a high white blood cell count of 18.2. No elevation of his renal function. No electrolyte disturbance. Urine had blood, rare bacteria, 5-10 whites and [address] imaging did show a 9 mm proximal ureteral stone with significant obstruction and hydronephrosis. Unfortunately do not have a urologist willing to admit the patient currently. He will require transfer for further evaluation and management. Patient still having pain despite morphine and Toradol. It is improved at this point. He is started on Rocephin. Patient was agreeable to being transferred to [facility]. He will be an ER to ER transfer with Dr. Irwin as the accepting physician. Patient otherwise has been stable throughout ED stay. Lab Data Labs: Laboratory Results - last 24 hr 0706/03/21 06/03/21 16:13 16:13 16:13 WBC 18.2 H RBC 5.78 Hgb 16.5 Hct 48.8 MCV 84.4 MCH 28.5 MCHC 33.8 RDW Std Deviation 37.0 RDW Coeff of Shyla 12.1 Plt Count 390 MPV 9.0 Immature Gran % (Auto) 0.800 Neut % (Auto) 87.6 H Lymph % (Auto) 6.2 L [place] % (Auto) 4.9 Eos % (Auto) 0.1 Baso % (Auto) 0.4 Absolute Neuts (auto) 15.9 H Absolute Lymphs (auto) 1.12 Nucleated RBC % 0 Sodium 138 Potassium 3.6 Chloride 107 Carbon Dioxide 25.0 Anion Gap 6 BUN 10 Creatinine 1.22 Estim Creat Clear Calc 102.01 Est GFR (MDRD) Af Amer 96 Est GFR (MDRD) Non-Af 79 BUN/Creatinine Ratio 8.2 L Glucose 117 H Calcium 9.7 Total Bilirubin 0.80 Direct Bilirubin 0.18 AST 14 L ALT 36 Alkaline Phosphatase 84 Total Protein 8.0 Albumin 4.4 Globulin 3.6 Urine Color Urine Clarity Urine pH Ur Specific [place] Urine Protein Urine Glucose (UA) Urine Ketones Urine Occult Blood Urine Nitrite Urine Bilirubin Urine Urobilinogen Ur Leukocyte Esterase Urine RBC Urine WBC Ur Squamous Epith Cells Calcium Oxalate Crystal Urine Bacteria Urine Mucus 06/03/21 16:25 WBC RBC Hgb Hct MCV MCH MCHC RDW Std Deviation RDW Coeff of Shyla Plt Count MPV Immature Gran % (Auto) Neut % (Auto) Lymph % (Auto) [place] % (Auto) Eos % (Auto) Baso % (Auto) Absolute Neuts (auto) Absolute Lymphs (auto) Nucleated RBC % Sodium Potassium Chloride Carbon Dioxide Anion Gap BUN Creatinine Estim Creat Clear Calc Est GFR (MDRD) Af Amer Est GFR (MDRD) Non-Af BUN/Creatinine Ratio Glucose Calcium Total Bilirubin Direct Bilirubin AST ALT Alkaline Phosphatase Total Protein Albumin Globulin Urine Color Yellow Urine Clarity Cloudy Urine pH 6.0 Ur Specific [place] 1.025 Urine Protein 30 H Urine Glucose (UA) Normal Urine Ketones 5 H Urine Occult Blood 250 H Urine Nitrite Negative Urine Bilirubin Negative Urine Urobilinogen Normal Ur Leukocyte Esterase 25 H Urine RBC 25-50 SEEN Urine WBC 5-10 SEEN Ur Squamous Epith Cells 0 SEEN Calcium Oxalate Crystal 1+ Urine Bacteria RARE Urine Mucus 0 SEEN Radiography Diagnostic Testing: Radiology Impression Abdomen/Pelvis CT 06/03/21 16:25 IMPRESSION: High-grade obstruction of the left collecting system due to a 9 mm stone in the proximal ureter. There is severe left-sided hydronephrosis. There is a nonobstructing calyceal stone also on the left kidney. Individualized dose optimization techniques were used for this CT. at 1720 Reported and signed by: Edilson Suarez MD Electronically Signed: Edilson Suarez MD at 17:19 EDT Tel , Service support , Discharge Plan Triage Chief Complaint: Flank Pain ED Provider: Aj Osuna Dx/Rx/DC Orders Clinical Impression: Urinary tract obstruction by kidney stone, Leukocytosis Prescriptions: No Action NK RF: 0 Primary Care Provider: Care Physician,No Primary Referrals: Care Physician,No Primary [Primary Care Provider] - Disposition Disposition: Acute Care Hospital Discharge Location: [facility] Discharge Date/Time: 06/03/21 19:52
[2021-06-03] MEDS: Morphine 4 MG/ML Syringe IV (16:40)
[2021-06-03 16:44] LABS: Squamous Epithelial Cells - UA 0 SEEN /hpf (0-5)
[2021-06-03 16:45] LABS: Color, Urine Yellow (Yellow); Glucose, Dipstick Normal (Normal); Ketone-Dipstick 5 mg/dl (Negative); Leukocyte Esterase-Dipstick 25 /ul (Negative); Mucous, Urine 0 SEEN /hpf (<or=2+); Nitrite-Dipstick Negative (Negative); Occult Blood-Urine 250 /ul (Negative); Protein-Dipstick 30 mg/dl (Negative); Specific Gravity, Urine 1.025 (1.002-1.030); Urine Bilirubin Dipstick Negative (Negative); Urine Clarity Cloudy (Clear); Urine Urobilinogen Normal (Normal)
[2021-06-03 16:58] LABS: Bacteria RARE /hpf (None Seen); Calcium Oxalate Crystals Ur 1+ /hpf (<or=2+); Red Blood Cells-Urine 25-50 SEEN /hpf (0-5); White Blood Cells 5-10 SEEN /hpf (0-5)
[2021-06-03 17:36] LABS: AST(SGOT) 14 U/L (15-37); Alanine Aminotransfer ALT/SGPT 36 U/L (16-61); Albumin, Serum 4.4 g/dL (3.2-5.0); Alkaline Phosphatase 84 U/L (45-117); Bilirubin, Direct 0.18 mg/dL (0.00-0.30); Globulin 3.6 g/dL (2.2-4.2)
--- NOTE | 2021-06-03 17:43 | NURSING ---
[id number] LITTLE
--- NOTE | 2021-06-03 17:43 | NURSING ---
757 CALLED [facility]. TALKED TO CRISTOBAL. TALKING TO HER
[2021-06-03] MEDS: Ketorolac 15 MG/ML Vial IV (17:54)
[2021-06-03] MEDS: Ceftriaxone 1 GM/50 ML BAG IV (17:58)
[2021-06-03 18:07] VITALS: BP 175/72; PULSE 84; RESP 14; TEMP 37.2; O2SAT 95
--- NOTE | 2021-06-03 18:08 | NURSING ---
PATIENT ACCEPTED AT [facility] BY DR PRICE. GOING ER TO ER NURSE TO NURSE [phone]
[2021-06-03 18:18] VITALS: BP 175/72; PULSE 67; RESP 14; O2SAT 95
--- NOTE | 2021-06-03 18:18 | NURSING ---
CALLED [facility], TALKED TO KESHAWN. ETA IS 90 MIN
== END 2021-06-03 19:52 | disposition short-term general hospital (02) ==
PROVIDERS: Emergency Provider Emergency Medicine
DX: N20.0 Calculus of kidney (principal); D72.829 Elevated white blood cell count, unspecified; Z90.49 Acquired absence of other specified parts of digestive tract; Z87.891 Personal history of nicotine dependence; Z87.442 Personal history of urinary calculi
CPT/HCPCS: 74177; 80048; 80076; 81001; 85025; 96365; 96375; 99285; Q9967; A4216

== ENCOUNTER 2021-09-11 22:55 | Emergency (ER) | payer MEDICAID, SELFPAY ==
[2021-09-11 22:56] VITALS: BP 148/79; PULSE 94; RESP 18; TEMP 36.6; O2SAT 100; BMI 29.2
[2021-09-11] MEDS: 0.9% Normal Saline 1,000 ML 999 ML IV (23:22)
[2021-09-11] MEDS: Ondansetron 4 MG/2 ML Vial IV (23:22)
[2021-09-11] MEDS: Morphine 4 MG/ML Syringe IV (23:22)
[2021-09-11 23:39] LABS: Absolute Neutrophil Count 22.2 X10^3/uL (2.0-7.7); Basophil# 0.09 X10^3/uL; Basophil% 0.3 % (0-1); Hemoglobin 16.1 g/dL (13.0-16.5); Lymphocyte % 8.9 % (19-41); Mean Corp Hgb Conc 34.3 g/dL (32-36); Mean Corpuscular Hgb 28.9 pg (27.0-32.0); Mean Corpuscular Volume 84.4 fL (80-94); Mean Platelet Vol. 9.4 fl (6.2-12.0); Monocyte# 1.68 X10^3/uL; Monocyte% 6.2 % (0-10); NRBC Flagged by Analyzer 0 % (0-5); Neutrophil % 82.3 % (47-70); POSITIVE DIFFERENTIAL YES; Platelet Count 445 K/mm3 (150-450); RBC Distribution Width CV 12.4 % (11.6-14.6); RBC Distribution Width SD 37.9 fl (35.1-43.9); Red Blood Count 5.57 M/mm3 (4.6-6.2)
[2021-09-11 23:40] LABS: Anion Gap 12 (5-15); BUN 17 mg/dL (7-18); BUN/Creat Ratio 13.5 RATIO (10-20); Calcium,Total 9.8 mg/dL (8.5-10.1); Chloride 105 mmol/L (98-107); Creatinine, Serum 1.26 mg/dL (0.70-1.30); EST Glomerular Filtration Rate 76 mL/min (>60); Est Glom Filt Rate - Afr Amer 92 mL/min (>60); Estimated Creatinine Clearance 98.77 ml/min; Glucose 171 mg/dL (74-106); Potassium 3.4 mmol/L (3.5-5.1); Sodium Level 139 mmol/L (136-145)
[2021-09-11 23:57] LABS: Differential Indicated SCAN CRITERIA MET
--- NOTE | 2021-09-12 00:16 | CT_ITS ---
STUDY: CT ABDOMEN AND PELVIS WITH CONTRAST REASON FOR EXAM: Male, 20 years old. abd pain RADIATION DOSAGE (If Supplied By Facility): CTDIvol = ( 15.13 ) mGy, DLP = ( 1173.24 ) mGycm TECHNIQUE: Transaxial images were obtained from the dome of the diaphragm to the symphysis pubis without oral contrast. IV 100mL Isovue-300 was administered. Sagittal and coronal images were reconstructed. Individualized dose optimization techniques were used for this CT. COMPARISON: 06/03/2021 FINDINGS: Lung bases clear. Unremarkable liver, spleen, pancreas, adrenals, and gallbladder. A 0.2 cm stone in the proximal right ureter just below the UPJ causing mild to moderate upstream hydroureteronephrosis. Nonobstructing stones in the lower pole of the left kidney measuring up to a 0.5 cm. Status post appendectomy. Bowel loops nonobstructed. No free air or free fluid. No adenopathy. Intact abdominal aorta and its major branches. Sections through the pelvis demonstrate an incompletely distended urinary bladder. Prostate is normal in size. Posterior disc bulge at L5-S1. Intact osseous structures. CT/Abdomen/Pelvis W IV Cont ONLY IMPRESSION: A 0.2 cm stone in the proximal right ureter causing [id number] upstream hydroureteronephrosis. Nonobstructing stones in the lower pole of the left kidney. Electronically Signed: Victor Hugo Regalado MD at 1:25 EDT Tel , Service support ,
[2021-09-12 00:55] LABS: Lactic Acid 1.6 mmol/L (0.4-1.9)
[2021-09-12 01:16] LABS: Color, Urine Yellow (Yellow); Glucose, Dipstick Normal (Normal); Ketone-Dipstick 50 mg/dl (Negative); Leukocyte Esterase-Dipstick Negative /ul (Negative); Nitrite-Dipstick Negative (Negative); Occult Blood-Urine 250 /ul (Negative); Protein-Dipstick 30 mg/dl (Negative); Specific Gravity, Urine 1.015 (1.002-1.030); Urine Bilirubin Dipstick Negative (Negative); Urine Clarity Clear (Clear); Urine Urobilinogen Normal (Normal)
[2021-09-12 01:22] LABS: Red Blood Cells-Urine 10-25 SEEN /hpf (0-5); White Blood Cells 0-5 SEEN /hpf (0-5)
[2021-09-12 01:23] LABS: Bacteria 1+ /hpf (None Seen); Mucous, Urine 1+ /hpf (<or=2+); Squamous Epithelial Cells - UA 0-5 SEEN /hpf (0-5)
--- NOTE | 2021-09-12 02:06 | EDS_ITS ---
HPI History of Present Illness Chief Complaint: Flank Pain Narrative Narrative: Patient is a 20-year-old male with previous history of kidney stone. He states he was sitting at home this evening when he developed right-sided flank pain that was sharp and stabbing in nature. He states there was no recent trauma prior to the pain beginning. He denies any hematuria or dysuria. He denies any loss of bowel or bladder control or IV drug use. He states that this feels similar nature to his previous kidney stone and with the persistent pain presents for evaluation [facility] Medical History Asthma Crohn's disease Kidney stone Home Medications cephalexin 500 mg PO TID #21 cap 09/12/21 [Rx Last Taken Unknown] ondansetron HCl [Zofran] 4 mg PO Q8H PRN #21 tab 09/12/21 [Rx Last Taken Unknown] oxycodone-acetaminophen [Endocet] 1 tab PO Q6H PRN 3 Days #12 tab 09/12/21 [Rx Last Taken Unknown] tamsulosin [Flomax] 0.4 mg PO DAILY #14 cap 09/12/21 [Rx Last Taken Unknown] Allergy/AdvReac Type Severity Reaction Status Date / Time No Known Allergies Allergy Verified 09/11/21 22:58 Social History Smoking Status: Former smoker ROS ROS ED Constitutional Constitutional ED: Denies chills or fever(s) ENT ENT ED: Denies sore throat Cardiovascular Cardiovascular: Denies chest pain Respiratory/Chest Respiratory/Chest: Denies cough or dyspnea Gastrointestinal Gastrointestinal: Reports abdominal pain and nausea; Denies diarrhea or vomiting Genitourinary Genitourinary ED: Denies dysuria or hematuria Musculoskeletal Musculoskeletal: Reports back pain; Denies myalgias Integumentary Denies rash Neurologic Neurologic: Denies headache(s) Hematologic/Lymphatic Hematologic/Lymphatic: Denies easy bleeding or easy bruising EXAM Physical Exam Const Vital Signs: 09/11/21 22:56 Temperature 97.9 F Temperature Source Temporal Pulse Rate 94 Respiratory Rate 18 Blood Pressure 148/79 H Blood Pressure Mean 102 Pulse Ox 100 Oxygen Delivery Method Room Air Positive well nourished and well developed General Appearance ED: well developed HEENT Reports moist mucous membranes Eyes PERRL and EOMs intact bilaterally Neck supple Resp normal respiratory effort and clear to auscultation bilaterally Cardio regular rate and regular rhythm GI normal to inspection, nondistended, normoactive bowel sounds, non-tender, non- distended and no masses Auscultation: normoactive bowel sounds Palpation: soft Back/Spine Back/Spine Narrative: Positive right CVA pain Extremity normal to inspection Neuro oriented x3 and CN's II-XII intact bilaterally Sensorium / Orientation: alert Psych mental status grossly normal Skin no rashes or lesions noted MDM MDM MDM Narrative Medical decision making narrative: Patient presented to the ER with history and exam most consistent with kidney stone. He reported a CT scan about 2 months ago therefore I felt no need for an emergent CT scan at the start of his work- up. However his white count was drastically elevated at 27 and therefore I like to perform a CT scan and added a lactic acid. Lactic acid value is normal and patient is afebrile. CT scan shows stone with mild hydronephrosis but otherwise no clinically significant findings. Therefore at this time I believe the white count is most likely related to stress response. There is trace amount of infection in his urine so it will be sent for culture and he will be placed on Keflex. However at this time as his pain is controlled and he has no signs of urosepsis or acute kidney injury he is safe for discharge with outpatient follow-up. Lab Data Attestation: I reviewed the patient's lab results. Labs: Laboratory Results - last 24 hr 09/11/21 09/11/21 09/12/21 23:10 23:10 00:25 WBC 27.0 H RBC 5.57 Hgb 16.1 Hct 47.0 MCV 84.4 MCH 28.9 MCHC 34.3 RDW Std Deviation 37.9 RDW Coeff of Shyla 12.4 Plt Count 445 MPV 9.4 Immature Gran % (Auto) 2.300 H Neut % (Auto) 82.3 H Lymph % (Auto) 8.9 L [place] % (Auto) 6.2 Eos % (Auto) 0.0 Baso % (Auto) 0.3 Absolute Neuts (auto) 22.2 H Absolute Lymphs (auto) 2.40 Nucleated RBC % 0 [address] Review May foll Sodium 139 Potassium 3.4 L Chloride 105 Carbon Dioxide 22.0 Anion Gap 12 BUN 17 Creatinine 1.26 Estim Creat Clear Calc 98.77 Est GFR (MDRD) Af Amer 92 Est GFR (MDRD) Non-Af 76 BUN/Creatinine Ratio 13.5 Glucose 171 H Lactic Acid 1.6 Calcium 9.8 Urine Color Urine Clarity Urine pH Ur Specific [place] Urine Protein Urine Glucose (UA) Urine Ketones Urine Occult Blood Urine Nitrite Urine Bilirubin Urine Urobilinogen Ur Leukocyte Esterase Urine RBC Urine WBC Ur Squamous Epith Cells Urine Bacteria Urine Mucus 09/12/21 01:10 WBC RBC Hgb Hct MCV MCH MCHC RDW Std Deviation RDW Coeff of Shyla Plt Count MPV Immature Gran % (Auto) Neut % (Auto) Lymph % (Auto) Ocean % (Auto) Eos % (Auto) Baso % (Auto) Absolute Neuts (auto) Absolute Lymphs (auto) Nucleated RBC % Diff Path Review Sodium Potassium Chloride Carbon Dioxide Anion Gap BUN Creatinine Estim Creat Clear Calc Est GFR (MDRD) Af Amer Est GFR (MDRD) Non-Af BUN/Creatinine Ratio Glucose Lactic Acid Calcium Urine Color Yellow Urine Clarity Clear Urine pH 6.0 Ur Specific [place] 1.015 Urine Protein 30 H Urine Glucose (UA) Normal Urine Ketones 50 H Urine Occult Blood 250 H Urine Nitrite Negative Urine Bilirubin Negative Urine Urobilinogen Normal Ur Leukocyte Esterase Negative Urine RBC 10-25 SEEN Urine WBC 0-5 SEEN Ur Squamous Epith Cells 0-5 SEEN Urine Bacteria 1+ Urine Mucus 1+ Radiography Diagnostic Testing: Clinical Impression(s) from Imaging Studies Abdomen/Pelvis CT 09/12/21 00:16 IMPRESSION: A 0.2 cm stone in the proximal right ureter causing [id number] upstream hydroureteronephrosis. Nonobstructing stones in the lower pole of the left kidney. Electronically Signed: Victor Hugo Regalado MD at 1:25 EDT Tel , Service support , Discharge Plan Triage Chief Complaint: Flank Pain ED Provider: Manny Stanford Dx/Rx/DC Orders Clinical Impression: Renal colic, Kidney stone on right side Instructions: ED Kidney Stone w/ Colic Prescriptions: New cephalexin 500 mg capsule 500 mg PO TID Qty: 21 RF: 0 tamsulosin [Flomax] 0.4 mg capsule 0.4 mg PO DAILY Qty: 14 RF: 0 ondansetron HCl [Zofran] 4 mg tablet 4 mg PO Q8H PRN (Reason: nausea and vomiting) Qty: 21 RF: 0 oxycodone-acetaminophen [Endocet] 5-325 mg tablet 1 tab PO Q6H PRN (Reason: pain) 3 Days Qty: 12 RF: 0 Primary Care Provider: Care Physician,No Primary Referrals: Adalberto Mendoza MD [STAFF PHYSICIAN] - 3-5 Days if not improving Care Physician,No Primary [Primary Care Provider] - Disposition Disposition: Home, Self Care
[2021-09-12] MEDS: Cephalexin 250 MG Capsule 500 MG PO (02:18)
[2021-09-12 15:38] LABS: Pathologist Review Reviewed
== END 2021-09-12 02:26 | disposition home or self-care (01) ==
PROVIDERS: Emergency Provider Emergency Medicine
DX: N13.2 Hydronephrosis with renal and ureteral calculous obstruction (principal); Z87.891 Personal history of nicotine dependence
CPT/HCPCS: 74177; 80048; 81001; 83605; 85025; 87086; 87088; 99283; J7030; Q9967; A4216; J2405

== ENCOUNTER 2021-09-13 08:19 | Emergency (ER) | payer MEDICAID, SELFPAY ==
[2021-09-13 08:21] VITALS: BP 170/97; PULSE 81; RESP 16; TEMP 36.3; O2SAT 97; BMI 30.1
--- NOTE | 2021-09-13 08:35 | EDS_ITS ---
HPI HPI - GI History of Present Illness Chief Complaint: Flank Pain Informant: patient Abdominal Pain/Flank Pain Onset: Days (2) Context: Sudden Onset Timing: Continuous and Waxes and wanes Quality: Aching Location: Right Flank Current Severity: Severe Maximum Severity: Severe Worsened by: Nothing Relieved by: - (percocet some, but not this AM) Nausea/Vomiting/Emesis GI Symptom: Positive for Nausea and Vomiting Onset: Days (2) Quality: Positive for Nonbilious and Blood streaks (this AM) Diarrhea/Melena/Hematochezia GI Symptom: Negative for Diarrhea, Melena and Hematochezia Associated Symptoms Associated Symptoms: Positive for - (Decreased urine output); Negative for Dysuria, Frequency, Hematuria and Urgency Narrative Narrative: Patient diagnosed with a 2 mm right ureteral stone 2 nights ago, was prescribed antibiotics, Zofran, Percocet, this morning pain medication not he lping, nausea medicine is helping some but he still vomiting, he has been vomiting quite a bit, and now he is seeing some streaks of blood in small amounts which is happened to him before when he has vomited a lot. He denies any other new symptoms, mainly out of control symptoms. No fevers or chills or hematuria, he has not been eating and he has been drinking a lot less due to the vomiting, so his urine output has dropped. [facility] Medical History Asthma Crohn's disease Kidney stone Home Medications cephalexin 500 mg PO TID #21 cap 09/12/21 [Rx Last Taken Unknown] ondansetron HCl [Zofran] 4 mg PO Q8H PRN #21 tab 09/12/21 [Rx Last Taken Unknown] oxycodone-acetaminophen [Endocet] 1 tab PO Q6H PRN 3 Days #12 tab 09/12/21 [Rx Last Taken Unknown] tamsulosin [Flomax] 0.4 mg PO DAILY #14 cap 09/12/21 [Rx Last Taken Unknown] promethazine 25 mg PO Q6H PRN PRN #14 tablet 09/13/21 [Rx Last Taken Unknown] Allergy/AdvReac Type Severity Reaction Status Date / Time No Known Allergies Allergy Verified 09/13/21 08:19 Social History Smoking Status: Former smoker ROS ROS ED Constitutional Constitutional ED: Denies chills or fever(s) Eyes Eyes: Denies change in vision or diplopia ENT ENT ED: Denies rhinorrhea or sore throat Cardiovascular Cardiovascular: Denies chest pain or palpitations Respiratory/Chest Respiratory/Chest: Denies cough or dyspnea Gastrointestinal Gastrointestinal: Reports as per HPI, abdominal pain, nausea and vomiting; Denies diarrhea Genitourinary Genitourinary ED: Reports as per HPI and flank pain; Denies dysuria or hematuria Musculoskeletal Musculoskeletal: Reports back pain; Denies neck pain Integumentary Denies abscess or rash Neurologic Neurologic: Denies headache(s), paresthesias or weakness Psychiatric Psychiatric: Denies anxiety or suicidal thoughts EXAM Physical Exam Const Vital Signs: 09/13/21 08:21 Temperature 97.4 F L Temperature Source Temporal Pulse Rate 81 Respiratory Rate 16 Blood Pressure 170/97 H Blood Pressure Mean 121 Pulse Ox 97 Oxygen Delivery Method Room Air Positive well nourished and well developed General Appearance ED: well developed and NAD HEENT Reports moist mucous membranes normocephalic and atraumatic Eyes PERRL and EOMs intact bilaterally Neck full ROM and supple Resp normal respiratory effort and clear to auscultation bilaterally Cardio regular rate, regular rhythm and no murmurs GI non-tender and non-distended Auscultation: normoactive bowel sounds Palpation: soft Back/Spine General Back: CVA tenderness right and other FROM Extremity normal to inspection General Extremety ED: Negative for edema, pulses abnormal or tenderness General Extremity: Negative for edema or pulses abnormal Neuro oriented x3, CN's II-XII intact bilaterally and no sensory deficits noted Sensorium / Orientation: awake and alert Motor Exam: strength 5/5 throughout Skin no rashes or lesions noted and no wounds MDM MDM MDM Narrative Medical decision making narrative: Labs noted, leukocytosis significantly improved. Symptoms significantly improved after treatment here in the emergency department, he was given IV Reglan and his nausea was much better than when he was taken the ondansetron at home. We will give him a prescription for Phenergan in addition to what he has at home, he does not have any strainer so he will be given some of them to. His stone is only 2 mm so he should be able to pass that without any surgical assistance, certainly he is only had the stone for 2 days and has not failed expectant management at this time. Patient is tolerating oral fluids, has analgesics at home, and will be discharged in stable improved condition. Lab Data Attestation: I reviewed the patient's lab results. Labs: Laboratory Results - last 24 hr 09/13/21 09/13/21 08:43 08:43 WBC 14.1 H RBC 5.31 Hgb 15.3 Hct 46.3 MCV 87.2 MCH 28.8 MCHC 33.0 RDW Std Deviation 39.6 RDW Coeff of Shyla 12.4 Plt Count 347 MPV 9.1 Immature Gran % (Auto) 0.600 Neut % (Auto) 77.0 H Lymph % (Auto) 16.3 L [place] % (Auto) 5.4 Eos % (Auto) 0.3 Baso % (Auto) 0.4 Absolute Neuts (auto) 10.9 H Absolute Lymphs (auto) 2.30 Nucleated RBC % 0 Sodium 140 Potassium 3.5 Chloride 104 Carbon Dioxide 29.0 Anion Gap 7 BUN 14 Creatinine 1.14 Estim Creat Clear Calc 105.84 Est GFR (MDRD) Af Amer 103 Est GFR (MDRD) Non-Af 85 BUN/Creatinine Ratio 12.3 Glucose 133 H Calcium 9.5 Discharge Plan Triage Chief Complaint: Flank Pain ED Provider: Alex Astudillo Dx/Rx/DC Orders Clinical Impression: Renal colic, Kidney stone on right side Instructions: Kidney Stones Expectant Tx Prescriptions: New promethazine [promethazine] 25 MG tablet 25 mg PO Q6H PRN PRN (Reason: Nausea) Qty: 14 RF: 0 No Action cephalexin 500 mg capsule 500 mg PO TID Qty: 21 RF: 0 tamsulosin [Flomax] 0.4 mg capsule 0.4 mg PO DAILY Qty: 14 RF: 0 ondansetron HCl [Zofran] 4 mg tablet 4 mg PO Q8H PRN (Reason: nausea and vomiting) Qty: 21 RF: 0 oxycodone-acetaminophen [Endocet] 5-325 mg tablet 1 tab PO Q6H PRN (Reason: pain) 3 Days Qty: 12 RF: 0 Primary Care Provider: Care Physician,No Primary Referrals: Adalberto Mendoza MD [STAFF PHYSICIAN] - 1 Week if not improving Care Physician,No Primary [Primary Care Provider] - Disposition Disposition: Home, Self Care
[2021-09-13 08:46] LABS: Absolute Neutrophil Count 10.9 X10^3/uL (2.0-7.7); Basophil# 0.05 X10^3/uL; Basophil% 0.4 % (0-1); Eosinophil# 0.04 X10^3/uL; Eosinophils% 0.3 % (0-5); Hematocrit 46.3 % (40-54); Hemoglobin 15.3 g/dL (13.0-16.5); Lymphocyte % 16.3 % (19-41); Mean Corpuscular Hgb 28.8 pg (27.0-32.0); Mean Corpuscular Volume 87.2 fL (80-94); Mean Platelet Vol. 9.1 fl (6.2-12.0); Monocyte# 0.76 X10^3/uL; Monocyte% 5.4 % (0-10); NRBC Flagged by Analyzer 0 % (0-5); Neutrophil # 10.86 X10^3/uL (2.7-7.7); Platelet Count 347 K/mm3 (150-450); RBC Distribution Width CV 12.4 % (11.6-14.6); RBC Distribution Width SD 39.6 fl (35.1-43.9); Red Blood Count 5.31 M/mm3 (4.6-6.2); White Blood Count 14.1 K/mm3 (4.4-11.0)
[2021-09-13] MEDS: Metoclopramide 10 MG/2 ML Vial 5 MG IV (08:49)
[2021-09-13] MEDS: Morphine 4 MG/ML Syringe IV (08:50)
[2021-09-13] MEDS: Ketorolac 30 MG/ML Syringe IV (08:50)
[2021-09-13 08:58] LABS: Anion Gap 7 (5-15); BUN 14 mg/dL (7-18); BUN/Creat Ratio 12.3 RATIO (10-20); Calcium,Total 9.5 mg/dL (8.5-10.1); Chloride 104 mmol/L (98-107); Creatinine, Serum 1.14 mg/dL (0.70-1.30); EST Glomerular Filtration Rate 85 mL/min (>60); Est Glom Filt Rate - Afr Amer 103 mL/min (>60); Estimated Creatinine Clearance 105.84 ml/min; Glucose 133 mg/dL (74-106); Potassium 3.5 mmol/L (3.5-5.1); Sodium Level 140 mmol/L (136-145)
[2021-09-13] MEDS: 0.9% Normal Saline 1,000 ML 250 ML IV (09:53)
[2021-09-13 10:27] VITALS: BP 129/56; PULSE 71; RESP 16; O2SAT 97
== END 2021-09-13 10:30 | disposition home or self-care (01) ==
PROVIDERS: Emergency Provider Emergency Medicine
DX: N23 Unspecified renal colic (principal); Z87.891 Personal history of nicotine dependence; Z79.899 Other long term (current) drug therapy
CPT/HCPCS: 80048; 85025; 96374; 96375; 99283; J7030